=== PATIENT | male | born 1935 | race Caucasian/White ===

== ENCOUNTER → 2016-05-31 | Outpatient (CLI) | payer MEDICARE ==
--- NOTE | 2016-05-31 18:14 | Diagnostic Imaging Report ---
PROCEDURE: CT abdomen and pelvis without contrast. TECHNIQUE: Multiple contiguous axial images were obtained through the abdomen and pelvis without the use of intravenous contrast. INDICATION: Hematuria. FINDINGS: Lung bases show mild atelectasis. There are several small calculi in the upper pole calyces on the right, largest measuring approximately 4 mm. No evidence of renal obstruction. There is an exophytic soft tissue density off of the lateral upper portion of the left kidney measuring 11 mm. This is well circumscribed. The liver appears normal. The gallbladder and bile ducts are normal. Pancreas is normal. Spleen is normal. The adrenal glands are normal. Aorta is atherosclerotic. Bowel gas pattern appears normal throughout. The appendix is visualized and appears normal. No evidence of diverticulitis though there are multiple diverticula in the sigmoid colon. There is generalized thickening of the bladder wall in a uniform pattern. Prostate is enlarged. Bone windows show no blastic lesions. IMPRESSION: 1. There are several small nonobstructing calculi in the upper pole of the right kidney. 2. A 1.1 cm exophytic well-circumscribed lesion off the upper pole of the left kidney. Due to lack of contrast, this cannot be characterized as solid or cystic from this exam. These findings were discussed with Dr. Moore. Dictated by: Dictated on workstation # [id number]
== END ==
LOC: RAD 16:24
PROVIDERS: ATTEND Family Medicine
DX: R31.9 Hematuria, unspecified (principal); N20.0 Calculus of kidney
CPT/HCPCS: 74176

== ENCOUNTER → 2016-06-02 | Outpatient (CLI) | payer MEDICARE ==
--- NOTE | 2016-06-02 09:48 | Diagnostic Imaging Report ---
INDICATION: Renal lesion noted on CT scan of 05/31/2016. FINDINGS: Ultrasonography of the kidneys is performed, bilaterally. Right and left kidneys measure 11 x 5.2 x 5.7 cm and 12 x 5.6 x 4.8 cm, respectively. There is no evidence of hydronephrosis. No solid renal mass identified, however, there are 2 approximately 1.2 cm in diameter cysts noted in the upper pole of the left kidney. There is also an approximately 1.7 x 1.6 x 1.3 cm cyst inferiorly in the right kidney. There is a small hyperechoic focus present within the upper pole of the right kidney which would be compatible with a nonobstructing stone measuring approximately 0.4 cm in size. No perinephric fluid collection is identified. There is no evidence of urinary bladder filling defect. The bladder is incompletely distended, however, the prostate does appear enlarged. IMPRESSION: There are bilateral renal cysts without solid renal mass identified. There does appear to be an approximately 0.4 cm calculus in the upper pole of right kidney without obstruction. Prostatomegaly. Dictated by: Dictated on workstation # [id number]
== END ==
LOC: RAD 08:35
PROVIDERS: ATTEND Family Medicine
DX: N28.9 Disorder of kidney and ureter, unspecified (principal); N28.1 Cyst of kidney, acquired; N20.0 Calculus of kidney; N40.0 Benign prostatic hyperplasia without lower urinary tract symptoms
CPT/HCPCS: 76770

== ENCOUNTER → 2016-06-03 | Outpatient (CLI) | payer MEDICARE ==
--- NOTE | 2016-06-03 18:13 | Diagnostic Imaging Report ---
INDICATION: Hematuria and urinary frequency. EXAMINATION: Bladder sonography was performed in the routine fashion. FINDINGS: Bladder had a relatively smooth appearance. Initial bladder volume was 438 cc with large postvoid residual of 221 cc. IMPRESSION: Large postvoid residual of 221 cc. Dictated by: Dictated on workstation # [id number]
== END ==
LOC: RAD 13:24
PROVIDERS: ATTEND Family Medicine
DX: R31.9 Hematuria, unspecified (principal); R35.0 Frequency of micturition
CPT/HCPCS: 51798